=== PATIENT | male | born 1985 | race Caucasian/White ===

== ENCOUNTER 2022-06-11 17:09 | Emergency (ER) | payer MEDICAID, OTHER ==
[~2022-06-11] VITALS: Ht 188 cm; Wt 81.0 kg
[2022-06-11] MEDS ORDERED: KETOROLAC TROMETH 30 MG/ML 1ML VIAL IV ONE ×2 (18:45→22:00)
[2022-06-11] MEDS ORDERED: IOHEXOL 300 MG/ML 100ML BOTTLE IJ ONE (18:49)
[2022-06-11] MEDS ORDERED: HYDROcodone-ACET 5/325MG TAB PO ONE (19:00)
[2022-06-11 19:23] LABS: Basophils # (auto) 0 10 ^3/uL (0-0.2); Basophils % (auto) 0.2 % (0.0-2.0); Eosinophils # (auto) 0 10 ^3/uL (0-0.8); Eosinophils % (auto) 0.1 % (0.0-7.0); Hemoglobin 13.9 g/dL (13.5-17.5); Lymphocytes # (auto) 1.5 10 ^3/uL (0.4-5.4); White Blood Cell 19.1 10^3/uL (4.4-10.8)
[2022-06-11 19:25] LABS: Mean Corpuscular Hemoglobin 22.5 pg (28.0-32.0); Mean Corpuscular Hgb Conc. 31.5 g/dL (32.0-36.0); Mean Corpuscular Volume 71.5 fL (80.0-100.0); Monocytes % (auto) 5.1 % (0.0-12.0); Neutrophils # (auto) 16.6 10 ^3/uL (1.6-8.6); Neutrophils % (auto) 86.6 % (37.0-80.0); Nucleated Red Blood Cells % 0.1 %; Red Blood Cells 6.16 10^6/uL (4.5-5.90); Red Cell Distribution Width 14.6 % (11.8-14.3)
[2022-06-11 19:37] LABS: INR 0.97 (0.9-1.15); Partial Thromboplastin Time 22.8 sec (24.6-33.4)
[2022-06-11 19:50] LABS: Albumin 4.3 g/dL (3.4-5.0); Calcium 9.8 mg/dL (8.5-10.1); Potassium 3.2 mmol/L (3.5-5.1)
[2022-06-11 19:57] LABS: Bilirubin, Total 0.6 mg/dL (0.2-1.0); Total Protein 8.2 g/dL (6.4-8.2)
[2022-06-11] MEDS ORDERED: ETOMIDATE (2MG/ML) 20ML VIAL IV ONE ×2 (20:45→22:15)
[2022-06-11] MEDS ORDERED: PROPOFOL 100 ML IV ONE (21:35)
[2022-06-11] MEDS ORDERED: PROPOFOL 10 MG/ML 20 ML IV ONE ×2 (22:00→23:30)
[2022-06-11] MEDS ORDERED: SODIUM CHLORIDE 0.9% 1,000 ML IV ONE (23:30)
[2022-06-11] MEDS ORDERED: ONDANSETRON HCL 4 MG/2 ML VIAL IV ONE (23:30)
[2022-06-12 00:24] VITALS: BP 150/89
[2022-06-12] MEDS ORDERED: PERCOT PO (00:25)
== END 2022-06-12 00:34 | disposition home or self-care (01) ==
LOC: ER 17:09 → EDBD 17:09 → ER 06-12 00:34
DX: S43.005A Unspecified dislocation of left shoulder joint, initial encounter (principal); R51.9 Headache, unspecified; W11.XXXA Fall on and from ladder, initial encounter; Y93.89 Activity, other specified; Y92.89 Other specified places as the place of occurrence of the external cause; Y99.8 Other external cause status
CPT/HCPCS: 23650; 36415; 70450; 71260; 72125; 73020; 73030; 74177; 80053; 85025; 85610; 85730; 86850; 86900; 86901; 96361; 96374; 96375; 99152; 99285; J1885; J2405; J2704; Q9967

== ENCOUNTER 2022-07-17 14:36 | Emergency (ER) | payer MEDICAID ==
[~2022-07-17] VITALS: Ht 180.3 cm; Wt 74.0 kg
[~2022-07-17 14:36] MED LIST: PERCOT PO
[2022-07-17 16:05] VITALS: BP 150/79
[2022-07-17] MEDS ORDERED: TRAM50TA2 PO (16:39)
[2022-07-17] MEDS ORDERED: DICL75TA2 PO (16:39)
[2022-07-17] MEDS: traMADol HCL 50 MG TAB PO ONE ×3 (16:48→17:16)
== END 2022-07-17 17:18 | disposition home or self-care (01) ==
LOC: ER 14:36
DX: S43.005D Unspecified dislocation of left shoulder joint, subsequent encounter (principal); F12.10 Cannabis abuse, uncomplicated; X58.XXXD Exposure to other specified factors, subsequent encounter